=== PATIENT | female | born 1940 | race Caucasian/White ===

== ENCOUNTER 2017-09-11 20:40 | Emergency (ER) | payer OTHER ==
[~2017-09-11] VITALS: Ht 162.6 cm; Wt 78.0 kg
[2017-09-11 21:04] LABS: APPEARANCE CLEAR ((CLEAR)); BILIRUBIN NEGATIVE; BLOOD LARGE; COLOR YELLOW ((YELLOW)); GLUCOSE (STRIP) NEGATIVE; KETONES NEGATIVE; LEUKOCYTES SMALL; NITRITE NEGATIVE; PROTEIN (STRIP) NEGATIVE; SPECIFIC GRAVITY 1.011 (1.000-1.030); UROBILINOGEN 0.2 MG/DL (0.2-1.0)
[2017-09-11 21:13] LABS: HEMATOCRIT 39.9 % (36.0-46.0); HEMOGLOBIN 13.5 G/DL (11.9-15.5); MCH 31.2 PG (29.0-34.0); MCHC 33.8 G/DL (30.0-36.0); MCV 92.1 FL (83-99); PLATELET COUNT 231 K/uL (156-360); RBC DIS.WIDTH-CV 13.5 % (11.8-14.6); RED BLOOD COUNT 4.33 M/uL (3.80-5.20); WHITE BLOOD COUNT 7.8 K/uL (4.1-10.2)
[2017-09-11 21:27] LABS: CHLORIDE 102 mEq/L (99-109); POTASSIUM 4.4 mEq/L (3.7-5.4); SODIUM 137 mEq/L (136-147)
[2017-09-11 21:28] LABS: RED BLOOD CELLS TNTC /HPF (0-5)
[2017-09-11 21:29] LABS: GLUCOSE 131 mg/dL (70-99); TOTAL PROTEIN 6.6 g/dL (6.4-8.3)
[2017-09-11 21:31] LABS: TOTAL BILIRUBIN 0.4 mg/dL (0.0-1.0)
[2017-09-11 21:33] LABS: BACTERIA 1+ /HPF; EPITHELIAL CELLS RARE /HPF; MUCUS NONE SEEN /LPF; UCUL ADDED? YES; WHITE BLOOD CELLS 15-20 /HPF (0-5)
[2017-09-11 21:33] LABS: ALKALINE PHOSPHATASE 69 IU/L (3-129); CREATININE 1.1 mg/dL (0.6-1.3); GFR ESTIMATE (CALCULATED) 51 mL/min/
[2017-09-11 21:34] LABS: AST (GOT) 18 IU/L (2-34); UREA NITROGEN (BUN) 20 mg/dL (9-23)
[2017-09-11 21:36] LABS: ALT (GPT) 19 IU/L (3-49)
[2017-09-11] MEDS ORDERED: KEFLEX500 MG PO (22:43)
[2017-09-11] MEDS ORDERED: PYRIDIUM200 MG PO (22:43)
[2017-09-11 22:50] VITALS: BP 176/71
== END 2017-09-11 22:58 | disposition home or self-care (01) ==
LOC: EME 20:40
DX: N39.0 Urinary tract infection, site not specified (principal); E78.5 Hyperlipidemia, unspecified; I10 Essential (primary) hypertension
CPT/HCPCS: 80053; 81003; 85027; 87086; 99281; 99283